=== PATIENT | male | born 1965 | race Caucasian/White ===

== ENCOUNTER 2017-01-31 23:33 | Inpatient (IN) ==
--- NOTE | 2017-02-01 01:24 | Emergency Department Note ---
Disposition Clinical Impression: Pleuritic chest pain, Elevated d-dimer Disposition: Admitted As Inpatient Condition: Good General Adult HPI - General Chief complaint: ED General Medical Stated complaint: pain under right arm pain is causing liss Time Seen by Provider: 02/01/17 01:03 Source: patient Limitations: no limitations - History of Present Illness Pain Scale: 10 - Related Data Allergies Allergy/AdvReac Type Severity Reaction Status Date / Time codeine Allergy Rash Verified 01/31/17 23:49 Past Medical History - Past Medical History Medical history: Reports: arthritis, diabetes, hypertension Psychiatric history: Reports: depression - Social History Smoking Status: Current every day smoker Smokeless Tobacco Status: No Alcohol use: Reports: none Drug use: Reports: none Physical Exam - General Limitations: no limitations General appearance: alert, in no apparent distress Course Vital Signs Temperature 98.1 F 01/31/17 23:49 Pulse Rate 73 01/31/17 23:49 Respiratory Rate 16 01/31/17 23:49 Blood Pressure 119/66 01/31/17 23:49 O2 Sat by Pulse Oximetry 95 01/31/17 23:49 Temperature 97.4 F L 02/01/17 05:33 Pulse Rate 69 02/01/17 05:33 Respiratory Rate 14 02/01/17 05:33 Blood Pressure 137/82 02/01/17 05:33 O2 Sat by Pulse Oximetry 94 02/01/17 05:33 Oxygen Delivery Oxygen Delivery Room Air Medical Decision Making - Lab Data Result diagrams: 02/01/17 02:13 02/01/17 02:13 Lab Results 02/01/17 02/01/17 02/01/17 Range/Units 02:13 02:13 02:13 WBC 11.2 H (4.3-11.1) K/mcL RBC 4.82 (4.19-5.50) M/mcL Hgb 14.6 (12.9-16.9) g/dL Hct 43.9 (37.5-50.1) % MCV 91.1 (83.0-100.0) fL MCH 30.3 (28.0-33.3) pg MCHC 33.3 (31.6-35.5) g/dL RDW 12.5 (11.5-14.5) % Plt Count 256 (140-400) K/mcL MPV 10.9 (9.4-12.4) fL Immature Gran % 0.4 (0-4) % Seg Neutrophils % 59.4 % Lymphocytes % 28.5 % Monocytes % 8.7 % Eosinophils % 2.5 % Basophils % 0.5 % Neutrophils # 6.7 (1.6-8.9) K/mcL Lymphocytes # 3.2 (0.6-4.6) K/mcL Monocytes # 1.0 (0.0-1.3) K/mcL Eosinophils # 0.3 (0.0-0.6) K/mcL Basophils # 0.1 (0.0-0.2) K/mcL Immature Plt Fraction 10.2 H (1.1-6.1) % PT (9.4-12.1) Seconds INR APTT (26.0-36.0) Seconds D-Dimer 1271 H (0-500) ng/mLFEU Sodium 131 L (136-145) mEq/L Potassium 4.2 (3.5-4.5) mEq/L Chloride 95 L (98-109) mEq/L Carbon Dioxide 25 (19-29) mEq/L BUN 30 H (8-26) mg/dL Creatinine 1.84 H (0.72-1.25) mg/dL Est GFR ( Amer) 47 L (> 60) Est GFR (Non-Af Amer) 39 L (> 60) BUN/Creatinine Ratio 16 (6-26) Glucose 371 H (70-99) mg/dL Calculated Osmolality 293 (280-300) Calcium 10.4 (8.6-10.8) mg/dL 02/01/17 Range/Units 02:13 WBC (4.3-11.1) K/mcL RBC (4.19-5.50) M/mcL Hgb (12.9-16.9) g/dL Hct (37.5-50.1) % MCV (83.0-100.0) fL MCH (28.0-33.3) pg MCHC (31.6-35.5) g/dL RDW (11.5-14.5) % Plt Count (140-400) K/mcL MPV (9.4-12.4) fL Immature Gran % (0-4) % Seg Neutrophils % % Lymphocytes % % Monocytes % % Eosinophils % % Basophils % % Neutrophils # (1.6-8.9) K/mcL Lymphocytes # (0.6-4.6) K/mcL Monocytes # (0.0-1.3) K/mcL Eosinophils # (0.0-0.6) K/mcL Basophils # (0.0-0.2) K/mcL Immature Plt Fraction (1.1-6.1) % PT 10.9 (9.4-12.1) Seconds INR 1.0 APTT 31.8 (26.0-36.0) Seconds D-Dimer (0-500) ng/mLFEU Sodium (136-145) mEq/L Potassium (3.5-4.5) mEq/L Chloride (98-109) mEq/L Carbon Dioxide (19-29) mEq/L BUN (8-26) mg/dL Creatinine (0.72-1.25) mg/dL Est GFR ( Amer) (> 60) Est GFR (Non-Af Amer) (> 60) BUN/Creatinine Ratio (6-26) Glucose (70-99) mg/dL Calculated Osmolality (280-300) Calcium (8.6-10.8) mg/dL Attestation Statement - Attestation Attestation: I examined this patient and my medical decision-making was reviewed with the SUMO WRESTLER/PA/Advanced Practice Nurse/Resident Physician. I agree with the documented findings, disposition and treatment plan as described except to the extent set forth below. Face to face time provided Patient complains of pain to his right axillary area. He appears in no acute distress on exam. EKG reviewed by me. Patient seen and evaluated in conjunction with the resident physician Dr. Jean Baptiste
--- NOTE | 2017-02-01 01:51 | Emergency Department Note ---
Disposition Clinical Impression: Pleuritic chest pain, Elevated d-dimer Disposition: Admitted As Inpatient Condition: Good Chest Pain HPI - General Chief Complaint: ED General Medical Stated Complaint: pain under right arm pain is causing liss Time Seen by Provider: 02/01/17 01:03 Source: patient Limitations: no limitations Vital Signs Reviewed: Yes Nursing Notes Reviewed: Yes - History of Present Illness HPI Narrative: 51-year-old male presents to the emergency department with a chief complaint of right-sided chest pain. He states it began tonight. He states it only hurts when he takes a deep breath in. When he takes a deep breath in he feels short of breath but not otherwise. Denies any history of DVT or PE. He takes no anticoagulants. He denies any substernal chest pressure, nausea, vomiting, diaphoresis. He states he feels completely fine while taking shallow breaths but only has pain when he takes a deep breath in on the right side. Denies any lower extremity swelling or calf pain. Denies any other complaints or concerns today Severity scale (1-10): 10 - Related Data Allergies Allergy/AdvReac Type Severity Reaction Status Date / Time codeine Allergy Rash Verified 01/31/17 23:49 All systems ED: reviewed and negative except as stated. Constitutional: Denies: fever Cardiovascular: Denies: dyspnea on exertion Respiratory: Denies: cough Gastrointestinal: Denies: abdominal pain, nausea, vomiting Musculoskeletal: Denies: back pain Neurological: Denies: weakness, numbness Chest Pain PMH - Past Medical History Medical history: Reports: arthritis, diabetes, hypertension Psychiatric history: Reports: depression - Social History Smoking Status: Current every day smoker Alcohol use: Reports: none Drug use: Reports: none Physical Exam General: Appears well, alert and oriented x 3 Cardiovascular: Regular rate and rhythm. S1, S2. No murmurs, rubs or gallops. Respiratory: Breath sounds clear bilaterally. No wheezing, rales or rhonchi. No resp distress Chest wall: No reproducible chest wall tenderness Abdomen: Soft, nontender. No guarding, rebound or rigidity. Eyes: Conjunctiva clear HENT: No oral mucosal lesions. Moist mucous membranes Musculoskeletal: There is no lower extremity swelling, asymmetry, edema, tenderness or any signs of DVT Skin: No lesions. No diaphoresis. Normal turgor. Normal color Psych: Appropriate - General Limitations: no limitations General appearance: alert, in no apparent distress Course Course Narrative: Presents to the emergency department with acute onset pleuritic chest pain on the right. No history of DVT or PE. Patient was low risk and a d-dimer was ordered which came back elevated at 1300. We cannot perform a CTA due to chronic renal insufficiency with a creatinine of 1.8. Patient will need a VQ scan. VQ scan was not available at this hour and patient will be started on a heparin drip and admitted the hospital to have this test performed. His vitals are stable. I discussed with the on-call hospitalist who accepts for admission. No further orders at this time EKG shows no acute changes. Patient states the pain is pleuritic in nature, not constant and is not associated with any other high-risk symptoms such as nausea, vomiting, diaphoresis or radiation. I do not suspect ACS. Vital Signs Temperature 98.1 F 01/31/17 23:49 Pulse Rate 73 01/31/17 23:49 Respiratory Rate 16 01/31/17 23:49 Blood Pressure 119/66 01/31/17 23:49 O2 Sat by Pulse Oximetry 95 01/31/17 23:49 Temperature 98.1 F 01/31/17 23:49 Pulse Rate 67 02/01/17 04:00 Respiratory Rate 20 02/01/17 04:00 Blood Pressure 121/75 02/01/17 04:00 O2 Sat by Pulse Oximetry 96 02/01/17 04:00 Oxygen Delivery Oxygen Delivery Room Air Chest Pain - Lab Data Result diagrams: 02/01/17 02:13 02/01/17 02:13 Lab Results 02/01/17 02/01/17 02/01/17 Range/Units 02:13 02:13 02:13 WBC 11.2 H (4.3-11.1) K/mcL RBC 4.82 (4.19-5.50) M/mcL Hgb 14.6 (12.9-16.9) g/dL Hct 43.9 (37.5-50.1) % MCV 91.1 (83.0-100.0) fL MCH 30.3 (28.0-33.3) pg MCHC 33.3 (31.6-35.5) g/dL RDW 12.5 (11.5-14.5) % Plt Count 256 (140-400) K/mcL MPV 10.9 (9.4-12.4) fL Immature Gran % 0.4 (0-4) % Seg Neutrophils % 59.4 % Lymphocytes % 28.5 % Monocytes % 8.7 % Eosinophils % 2.5 % Basophils % 0.5 % Neutrophils # 6.7 (1.6-8.9) K/mcL Lymphocytes # 3.2 (0.6-4.6) K/mcL Monocytes # 1.0 (0.0-1.3) K/mcL Eosinophils # 0.3 (0.0-0.6) K/mcL Basophils # 0.1 (0.0-0.2) K/mcL Immature Plt Fraction 10.2 H (1.1-6.1) % PT (9.4-12.1) Seconds INR APTT (26.0-36.0) Seconds D-Dimer 1271 H (0-500) ng/mLFEU Sodium 131 L (136-145) mEq/L Potassium 4.2 (3.5-4.5) mEq/L Chloride 95 L (98-109) mEq/L Carbon Dioxide 25 (19-29) mEq/L BUN 30 H (8-26) mg/dL Creatinine 1.84 H (0.72-1.25) mg/dL Est GFR ( Amer) 47 L (> 60) Est GFR (Non-Af Amer) 39 L (> 60) BUN/Creatinine Ratio 16 (6-26) Glucose 371 H (70-99) mg/dL Calculated Osmolality 293 (280-300) Calcium 10.4 (8.6-10.8) mg/dL 02/01/17 Range/Units 02:13 WBC (4.3-11.1) K/mcL RBC (4.19-5.50) M/mcL Hgb (12.9-16.9) g/dL Hct (37.5-50.1) % MCV (83.0-100.0) fL MCH (28.0-33.3) pg MCHC (31.6-35.5) g/dL RDW (11.5-14.5) % Plt Count (140-400) K/mcL MPV (9.4-12.4) fL Immature Gran % (0-4) % Seg Neutrophils % % Lymphocytes % % Monocytes % % Eosinophils % % Basophils % % Neutrophils # (1.6-8.9) K/mcL Lymphocytes # (0.6-4.6) K/mcL Monocytes # (0.0-1.3) K/mcL Eosinophils # (0.0-0.6) K/mcL Basophils # (0.0-0.2) K/mcL Immature Plt Fraction (1.1-6.1) % PT 10.9 (9.4-12.1) Seconds INR 1.0 APTT 31.8 (26.0-36.0) Seconds D-Dimer (0-500) ng/mLFEU Sodium (136-145) mEq/L Potassium (3.5-4.5) mEq/L Chloride (98-109) mEq/L Carbon Dioxide (19-29) mEq/L BUN (8-26) mg/dL Creatinine (0.72-1.25) mg/dL Est GFR ( Amer) (> 60) Est GFR (Non-Af Amer) (> 60) BUN/Creatinine Ratio (6-26) Glucose (70-99) mg/dL Calculated Osmolality (280-300) Calcium (8.6-10.8) mg/dL - Radiology Data EKG shows a sinus rhythm with a rate of 73 bpm. There is no significant ST changes. VA, QRS, QT interval within normal limits. Normal axis. Normal R wave progression
[2017-02-01 03:01] LABS: Calcium 10.4 mg/dL (8.6-10.8); Potassium 4.2 mEq/L (3.5-4.5)
[2017-02-01] MEDS ORDERED: *HR* Heparin 5,000 UNIT/ML VIAL IVP ONE (03:22)
[2017-02-01] MEDS ORDERED: *HR* Heparin 5,000 UNIT/ML VIAL IVP PRN ×2 (03:22)
[2017-02-01] MEDS ORDERED: *HR* HYDROcodone/Acet 10/325 mg TABLET PO ONE (03:36)
[2017-02-01 04:10] LABS: Basophils # 0.1 K/mcL (0.0-0.2); Basophils % 0.5 %; Eosinophils # 0.3 K/mcL (0.0-0.6); Eosinophils % 2.5 %; Hematocrit 43.9 % (37.5-50.1); Hemoglobin 14.6 g/dL (12.9-16.9); Immature Granulocytes % 0.4 % (0-4); Immature Platelets 10.2 % (1.1-6.1); Lymphocytes # 3.2 K/mcL (0.6-4.6); Lymphocytes % 28.5 %; Mean Corpuscular HGB Conc 33.3 g/dL (31.6-35.5); Mean Corpuscular Hemoglobin 30.3 pg (28.0-33.3); Mean Corpuscular Volume 91.1 fL (83.0-100.0); Mean Platelet Volume 10.9 fL (9.4-12.4); Monocytes % 8.7 %; Neutrophils # 6.7 K/mcL (1.6-8.9); Platelet Count 256 K/mcL (140-400); Red Blood Count 4.82 M/mcL (4.19-5.50); Red Cell Distribution Width 12.5 % (11.5-14.5); Segmented Neutrophils % 59.4 %
[2017-02-01 04:18] LABS: Prothrombin Time 10.9 Seconds (9.4-12.1)
[2017-02-01 04:21] LABS: Activated Partial Thrombo Time 31.8 Seconds (26.0-36.0)
[2017-02-01] MEDS: Heparin 25,000 UNIT/500 ML D5W 25,000 UNIT/500 ML MLS IVC SCH (04:56)
[2017-02-01] MEDS ORDERED: Naloxone 0.4 MG/ML INJ IVP PRN (06:13)
--- NOTE | 2017-02-01 06:16 | Internal Med History&Physical ---
Date of Encounter: 02/01/17 Time of Encounter: 06:16 Assessment and Plan (1) Pleuritic chest pain Current visit: Yes Status: Acute Need to exclude VTE / PE. Analgesia. VQ scan to exclude PE. Pt is emperically started on heparin infusion. (2) Elevated d-dimer Current visit: Yes Status: Acute Need to exclude VTE / PE. Analgesia. VQ scan to exclude PE. Pt is emperically started on heparin infusion. If the PE is negative, need w/u to establish cause of elevated D-dimers. (3) Diabetes mellitus Current visit: Yes Status: Chronic continue home dose of insulin and add sliding scale insulin. Qualifiers: Diabetes mellitus type: type 2 Diabetes mellitus complication status: with unspecified complications Diabetes mellitus shelter insulin use: without shelter use Qualified Code(s): E11.8 - Type 2 diabetes mellitus with unspecified complications (4) HTN (hypertension) Current visit: Yes Status: Chronic Continue home medications Qualifiers: Hypertension type: essential hypertension Qualified Code(s): I10 - Essential (primary) hypertension (5) Nicotine dependence Current visit: Yes Status: Chronic Pt declines nicotine patches Qualifiers: Nicotine product type: cigarettes Substance use status: unspecified nicotine-induced disorder Qualified Code(s): F17.219 - Nicotine dependence, cigarettes, with unspecified nicotine-induced disorders Internal Medicine - H&P: HPI Chief complaint: Right sided pleuritic chest pain Admitted From: Emergency Dept Plans for Post Hospital Care: Home History of present illness: Mr. Macias is a 51 year old male With history of diabetes mellitus, hypertension, CKD stage 3 and PVD. Presents to the emergency department with history of sharp, severe, 10/10 right-sided lower chest pain associated with deep breath. Hence he is taking shallow breaths. He denies cough, hemoptysis, fever, chills, nausea, vomiting, abdominal pain, dysuria, hematuria, bowel problems. He was evaluated in the emergency department and his d-dimer was elevated at 1271. In view of his CKD stage 3, CTA chest could not be done and VQ scan is requested and yet to be done. He is started on heparin infusion in the ER and admitted to the hospitalist service for further w/u and management. He denies recent air travel, long car travel, recent hospitalization, surgical procedures, immobility, personal / family h/o VTE. Past Med Surg Social Fam HX - Past Medical History Medical history: arthritis, diabetes, hypertension Psychiatric history: depression - Social History Smoking Status: Current every day smoker Smokeless Tobacco Status: No Alcohol use: none Drug use: none - Additional Family History Additional family history: His mother had diabetes Internal Medicine - H&P: Meds Allergies codeine Allergy (Verified 01/31/17 23:49) Rash All Systems PM: A 10-system review of systems was performed and is negative for pertinent findings except as documented above in the HPI. - Constitutional Vitals: Temp Pulse Resp BP Pulse Ox 97.4 F L 69 14 137/82 94 02/01/17 05:33 02/01/17 05:33 02/01/17 05:33 02/01/17 05:33 02/01/17 05:33 Exam: General: Not in acute distress at the time of my evaluation HEENT: Oral mucosa is moist. No conjunctival palor or scleral icterus Neck: No obvious neck swellings Lungs: Clear to auscultation Cardiac: Regular rate and rhythm. No significant murmurs Abdomen: Soft, non tender. Bowel sounds present Genitourinary: No padilla catheter Neurological: Alert and oriented. No gross localizing deficits Psych: Not aggressive or agitated Extremities: no significant leg edema / calf tenderness Skin: No generalized rash Internal Med - H&P Results - Labs CBC & Chem 7: 02/01/17 02:13 02/01/17 02:13 - EKG Data -: EKG Interpreted by Myself EKG shows normal: sinus rhythm Rate: normal - Impressions ITS Impressions Chest X-Ray 02/01/17 01:46 IMPRESSION: 1. No acute cardiopulmonary disease. D/ / Talib Vergara MD / Talib Vergara MD Interpreting Provider: Talib Vergara MD
[2017-02-01] MEDS ORDERED: Dextrose Gel 15 GM PO PRN ×2 (06:20)
[2017-02-01] MEDS ORDERED: D5% in Water 1,000 ML IVC PRN (06:20)
[2017-02-01] MEDS ORDERED: *HR* Dextrose 50 % in Water (Syg) 50 ML SYRINGE IVP PRN (06:20)
[2017-02-01] MEDS: Insulin LISPRO 300 UNITS/3 ML VIAL SQ SCH ×4 (07:50→20:44)
[2017-02-01] MEDS ORDERED: Oxymetazoline Nasal SPRAY BOTTLE NS PRN (10:50)
[2017-02-01] MEDS: Acetaminophen 325 MG TABLET PO PRN ×2 (11:39→20:50)
[2017-02-01 12:34] LABS: Activated Partial Thrombo Time 110.3 Seconds (26.0-36.0)
[2017-02-01 12:36] LABS: Heparin anti-factor XA UFH 0.73 IU/mL (0.30-0.70)
[2017-02-01 12:53] LABS: INR 1.1; Prothrombin Time 11.7 Seconds (9.4-12.1)
--- NOTE | 2017-02-01 15:26 | Internal Med Progress Note ---
Date of Encounter: 02/01/17 Time of Encounter: 09:35 - Assessment and plan (1) Pulmonary embolism Current Visit: Yes Status: Acute Assessment and plan: Patient reports history of right mid axillary rib pain onset 9 PM last night. He says that sharp and intermittent and only with deep inspiration. He does report sometimes having minimal pain with movement and specifies with yawning. I did move his arm and palpate the area where he was having pain. There is no bruising, petechiae,. It is not tender to palpation. He is unable to take deep breaths due to pain. Breaths are shallow, and with poor inspiratory effort lungs are clear posteriorly. Patient is not requiring supplemental oxygen at this time. Due to renal function, patient was unable to have a CT scan. He did have a VQ scan this morning and the findings were high probability for acute PE. Radiology did call me. He was started on a heparin drip by event av operator admitting physician. We will continue the heparin drip. PT, APTT, INR all elevated. Will continue to monitor labs per protocol. Patient appears to be resting comfortably and has tolerated Tylenol for pain. I have seen him 2-3 other times since initial assessment he has not requested additional pain medication. Bilateral lower extremity venous Dopplers ordered and pending Continuous pulse ox Oxygen when necessary to maintain sats greater than 92% Continuous telemetry [facility]. Qualifiers: Pulmonary embolism type: other Chronicity: acute Acute cor pulmonale presence: without acute cor pulmonale Qualified Code(s): I26.99 - Other pulmonary embolism without acute cor pulmonale (2) Elevated d-dimer Current Visit: Yes Status: Acute Assessment and plan: Plan as above. (3) Diabetes mellitus Current Visit: Yes Status: Chronic Assessment and plan: A1c is 12.7. We will consult informatics educator. Sliding scale insulin Accu-Cheks before meals at bedtime Diabetic diet Qualifiers: Diabetes mellitus type: type 2 Diabetes mellitus complication status: with unspecified complications Diabetes mellitus senior care insulin use: without termite technician use Qualified Code(s): E11.8 - Type 2 diabetes mellitus with unspecified complications (4) HTN (hypertension) Current Visit: Yes Status: Chronic Assessment and plan: Chronic. Continue home medications. Qualifiers: Hypertension type: essential hypertension Qualified Code(s): I10 - Essential (primary) hypertension (5) Nicotine dependence Current Visit: Yes Status: Chronic Assessment and plan: Discussed smoking cessation. LPt states that nothing works and that he is not interested in education or materials at this time. Qualifiers: Nicotine product type: cigarettes Substance use status: unspecified nicotine-induced disorder Qualified Code(s): F17.219 - Nicotine dependence, cigarettes, with unspecified nicotine-induced disorders - Time Spent With Patient less than 15 minutes - Subjective Interval history: Patient was seen and assessed this morning at 9:35 AM. Is alert and oriented and interactive. He does not appear to be any distress, there is no conversational dyspnea. He speaks easily in full sentences. He reports right mid axillary rib pain, onset 2100 last p.m. He describes it as sharp and happens with deep inspiration. He also reports sometimes it happens with movement and/or yawning, however when he is up walking around or moving his arms , there is no increase in pain. It is not tender to palpation is not tender to arm extension, there is no obvious deformity or bruising. He is not requiring any supplemental oxygen nor does he wear oxygen at home. He rates the pain a constant 8 out of 10 and says that it becomes a 10 out of 10 with inspiration. He denies any recent change in his routine. Did discuss smoking cessation with him. He states "nothing works". He says he smokes one half pack per day. He says that he does not need any help. And he denies a new cough. - Constitutional Vitals: Temp Pulse Resp BP Pulse Ox 98.0 F 71 16 139/79 93 02/01/17 11:26 02/01/17 11:26 02/01/17 11:26 02/01/17 11:26 02/01/17 11:26 General appearance: Present: A&O X 3, pleasant, no acute distress, answers questions appropriately - Head Head exam: Present: normal inspection - Eye Eye exam: Present: normal appearance, conjuntiva pink - ENT ENT exam: Present: mucous membranes moist, normal exam - Neck Neck exam general surgery: Absent: lymphadenopathy, tenderness - Respiratory Respiratory exam: Present: decreased breath sounds. Absent: chest wall tenderness, rales, respiratory distress, rhonchi, stridor, wheezes, tachypnea - Cardiovascular Cardiovascular exam: Present: RRR, +S1, +S2. Absent: diastolic murmur, systolic murmur - GI/Abdominal GI/Abdominal exam: Present: normal bowel sounds, soft. Absent: distended, hepatomegaly, tenderness - Extremities Exam Extremities exam: Present: full ROM, normal inspection, warm, radial pulses palpable and symetrical. Absent: pedal edema, tenderness - Neurological Exam Neurological exam: Present: alert, oriented X3, no focal deficits, strengths equal and symetr throughout Internal Medicine: Result - Labs CBC & Chem 7: 02/01/17 02:13 02/01/17 02:13 Labs: Cardiac Enzymes 02/01/17 Range/Units 08:08 Troponin I 0.00 (0-0.03) ng/mL - ABG Interpretation ABG results: PT/INR, D-dimer PT 11.7 Seconds (9.4-12.1) 02/01/17 11:34 D-Dimer 1271 ng/mLFEU (0-500) H 02/01/17 02:13 Consult Discharge Plan - Plan Referrals: Verenice Castillo SALVAGE MECHANIC [Primary Care Provider] - 02/11/17 3:00 pm
--- NOTE | 2017-02-01 17:32 | Electrocardiograph Report ---
[place] [id number] Test Date: 2017-01-31 Pat Name: Wyatt Macias Department: 103 Room: 3B Gender: M Blueprinting Machine Operator: KEISHA : 1965 Requested By: Joe Edouard Order Number: [id number] Reading MD: Mindy Ramsey Measurements Intervals [place] Rate: 73 P: 42 FL: 179 QRS: 31 QRSD: 97 T: 52 QT: 361 QTc: 386 Interpretive Statements SINUS RHYTHM ST ELEVATION, PROBABLY EARLY REPOLARIZATION Electronically Signed On 02-01-2017 17:31:15 EDT by Mindy Ramsey
[2017-02-01 19:33] LABS: Prothrombin Time 10.9 Seconds (9.4-12.1)
[2017-02-01 19:45] LABS: Activated Partial Thrombo Time 47.2 Seconds (26.0-36.0)
[2017-02-01] MEDS ORDERED: INSULIN DETEMIR 55 UNIT SQ SCH (21:30)
[2017-02-01] MEDS: *HR* OxyCODONE/APAP 7.5/325 TABLET PO PRN (22:13)
[2017-02-01] MEDS: Insulin DETEMIR 100 UNIT/ML X5UNITS SQ SCH (22:13)
[2017-02-01] MEDS: Melatonin 3 MG TABLET PO SCH (22:13)
[2017-02-01] MEDS: Mirtazapine 15 MG TABLET PO SCH (22:13)
[2017-02-02 03:40] LABS: Basophils # 0.1 K/mcL (0.0-0.2); Eosinophils # 0.3 K/mcL (0.0-0.6); Eosinophils % 3.7 %; Hematocrit 40.6 % (37.5-50.1); Immature Granulocytes % 0.2 % (0-4); Lymphocytes # 3.9 K/mcL (0.6-4.6); Lymphocytes % 48.2 %; Mean Corpuscular HGB Conc 34.5 g/dL (31.6-35.5); Mean Corpuscular Hemoglobin 31.5 pg (28.0-33.3); Mean Corpuscular Volume 91.2 fL (83.0-100.0); Monocytes # 0.8 K/mcL (0.0-1.3); Monocytes % 9.2 %; Neutrophils # 3.1 K/mcL (1.6-8.9); Platelet Count 223 K/mcL (140-400); Red Blood Count 4.45 M/mcL (4.19-5.50); Red Cell Distribution Width 12.4 % (11.5-14.5); Segmented Neutrophils % 37.7 %
[2017-02-02 03:53] LABS: Calcium 10.5 mg/dL (8.6-10.8); Potassium 4.2 mEq/L (3.5-4.5)
[2017-02-02] MEDS: Heparin 25,000 UNIT/500 ML D5W 25,000 UNIT/500 ML MLS IVC SCH ×2 (04:03→23:50)
[2017-02-02] MEDS: *HR* OxyCODONE/APAP 7.5/325 TABLET PO PRN ×3 (07:58→22:10)
[2017-02-02] MEDS: Insulin LISPRO 300 UNITS/3 ML VIAL SQ SCH ×4 (07:59→22:04)
[2017-02-02] MEDS: 0.9 % Sodium Chloride 1,000 ML IVC SCH (10:37)
--- NOTE | 2017-02-02 14:05 | Venous Imaging Report ---
LE Venous Duplex Patient Name:Wyatt Macias Order Number:[id number] Procedure Date:02/01/2017 Date:1965Age:51 yrs Gender:Male Location:[facility] Room #: 3B33 Shipping Manager:Yvette Hector Referring MD:Margaret Burch TOY DESIGNER bottom stop attacher:Verenice Castillo, TOY DESIGNER Reading MD:Jacky Souza MD Primary Indications:High probability PE on VQ scan Secondary Indications: Impressions: Bilateral lower extremity: normal superficial and deep exam. Findings Prior Study: No prior study available for comparison. Lower Extremity Venous Duplex Side Vein Compress Spontaneous Flow Augment Diameter (cm) Depth (cm) Right Distal Iliac Normal Yes Phasic Yes Right Common Femoral Normal Yes Phasic Yes Right Superficial Femoral Normal Yes Phasic Yes Right Popliteal Normal Yes Phasic Yes Right Posterior Tibial Normal Yes Phasic Yes Right Peroneal Normal Yes Phasic Yes Right Saphenofemoral Junction Normal Yes Phasic Yes Right Great Saphenous Normal Yes Phasic Yes Right Lesser Saphenous Normal Yes Phasic Yes Left Distal Iliac Normal Yes Phasic Yes Left Common Femoral Normal Yes Phasic Yes Left Superficial Femoral Normal Yes Phasic Yes Left Popliteal Normal Yes Phasic Yes Left Posterior Tibial Normal Yes Phasic Yes Left Peroneal Normal Yes Phasic Yes Left Saphenofemoral [place]unction Normal Yes Phasic Yes Left Great Saphenous Normal Yes Phasic Yes Left Lesser Saphenous Normal Yes Phasic Yes Updated by Jacky Souza MD on 02/02/2017 1:59:01 PM electronically signed on 02/02/2017 1:59:28 PM with status of Final
--- NOTE | 2017-02-02 19:16 | Internal Med Progress Note ---
Date of Encounter: 02/02/17 Time of Encounter: 19:13 - Assessment and plan (1) Pulmonary embolism Current Visit: Yes Status: Acute Assessment and plan: Patient reports history of right mid axillary rib pain onset 9 PM last night. He says that sharp and intermittent and only with deep inspiration. He does report sometimes having minimal pain with movement and specifies with yawning. I did move his arm and palpate the area where he was having pain. There is no bruising, petechiae,. It is not tender to palpation. He is unable to take deep breaths due to pain. Breaths are shallow, and with poor inspiratory effort lungs are clear posteriorly. Patient is not requiring supplemental oxygen at this time. Due to renal function, patient was unable to have a CT scan. He did have a VQ scan this morning and the findings were high probability for acute PE. Radiology did call me. He was started on a heparin drip by heading maker admitting physician. We will continue the heparin drip. PT, APTT, INR all elevated. Will continue to monitor labs per protocol. Patient appears to be resting comfortably and has tolerated Tylenol for pain. I have seen him 2-3 other times since initial assessment he has not requested additional pain medication. Bilateral lower extremity venous Dopplers ordered and pending Continuous pulse ox Oxygen when necessary to maintain sats greater than 92% Continuous telemetry [facility]. 02/02/2017 PE diagnosed with V/Q scan will get troponin, ECHO and Cont IV fluids will get Oncology tomorrow spoke with Dr Dean ( patient claims that he was seen by Dr Dean in the past) no active vascular intervention at this time. out patient follow up Qualifiers: Pulmonary embolism type: other Chronicity: acute Acute cor pulmonale presence: without acute cor pulmonale Qualified Code(s): I26.99 - Other pulmonary embolism without acute cor pulmonale (2) Elevated d-dimer Current Visit: Yes Status: Acute Assessment and plan: Plan as above. (3) Diabetes mellitus Current Visit: Yes Status: Chronic Assessment and plan: A1c is 12.7. 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 Sliding scale insulin Accu-Cheks before meals at bedtime Diabetic diet Qualifiers: Diabetes mellitus type: type 2 Diabetes mellitus complication status: with unspecified complications Diabetes mellitus skilled nursing insulin use: without skilled nursing use Qualified Code(s): E11.8 - Type 2 diabetes mellitus with unspecified complications (4) HTN (hypertension) Current Visit: Yes Status: Chronic Assessment and plan: Chronic. Continue home medications. Qualifiers: Hypertension type: essential hypertension Qualified Code(s): I10 - Essential (primary) hypertension (5) Nicotine dependence Current Visit: Yes Status: Chronic Assessment and plan: Discussed smoking cessation. LPt states that nothing works and that he is not interested in education or materials at this time. Qualifiers: Nicotine product type: cigarettes Substance use status: unspecified nicotine-induced disorder Qualified Code(s): F17.219 - Nicotine dependence, cigarettes, with unspecified nicotine-induced disorders - Subjective Interval history: seen and examined. has occasional SOB - Constitutional Vitals: Temp Pulse Resp BP Pulse Ox 97.6 F 76 18 137/72 97 02/02/17 15:18 02/02/17 15:18 02/02/17 15:18 02/02/17 15:18 02/02/17 15:18 General appearance: Present: A&O X 3, pleasant, no acute distress, answers questions appropriately - Head Head exam: Present: atraumatic, normocephalic - Eye Eye exam: Present: PERRL, conjuntiva pink, sclera anicteric Pupils: Present: PERRL - Neck Neck exam general surgery: Present: supple, trachea midline. Absent: lymphadenopathy - Respiratory Respiratory exam: Present: CTAB. Absent: accessory muscle use, rales, rhonchi, wheezes - Cardiovascular Cardiovascular exam: Present: RRR, +S1, +S2. Absent: diastolic murmur, gallop, rubs, systolic murmur - GI/Abdominal GI/Abdominal exam: Present: normal bowel sounds, soft, no peritoneal signs. Absent: distended, tenderness - Extremities Exam Extremities exam: Present: warm, radial pulses palpable and symetrical. Absent : calf tenderness, cyanotic, pedal edema - Neurological Exam Neurological exam: Present: CN II-XII intact, oriented X3, no focal deficits. Absent: pronater drift, facial droop, speech deficit - Skin Skin exam: Present: dry, intact Internal Medicine: Result - Labs CBC & Chem 7: 02/02/17 03:24 02/02/17 03:24 Labs: Short CBC 02/02/17 Range/Units 03:24 WBC 8.1 (4.3-11.1) K/mcL Hgb 14.0 (12.9-16.9) g/dL Hct 40.6 (37.5-50.1) % Plt Count 223 (140-400) K/mcL Neutrophils # 3.1 (1.6-8.9) K/mcL BMP 02/02/17 03:24 Sodium 133 L Potassium 4.2 Chloride 97 L Carbon Dioxide 25 BUN 28 H Creatinine 1.53 H Glucose 242 H Calcium 10.5 Cardiac Enzymes 02/02/17 02/02/17 Range/Units 08:56 14:06 Troponin I 0.00 0.00 (0-0.03) ng/mL - ABG Interpretation ABG results: PT/INR, D-dimer PT 10.9 Seconds (9.4-12.1) 02/01/17 19:14 D-Dimer 1271 ng/mLFEU (0-500) H 02/01/17 02:13 Consult Discharge Plan - Plan Referrals: Verenice Castillo METAL BURNISHER [Primary Care Provider] - 02/11/17 3:00 pm
[2017-02-02] MEDS: Melatonin 3 MG TABLET PO SCH (22:04)
[2017-02-02] MEDS: Mirtazapine 15 MG TABLET PO SCH (22:04)
[2017-02-02] MEDS: Insulin DETEMIR 100 UNIT/ML X5UNITS SQ SCH (22:04)
[2017-02-03] MEDS: 0.9 % Sodium Chloride 1,000 ML IVC SCH (00:23)
--- NOTE | 2017-02-03 07:35 | ECHO - Doppler Report ---
Echocardiogram Name: Wyatt Macias Date of Study: 02/02/2017 Date: 1965 Ht: 72.0 in Medical Record#: [id number] Age: 51 Wt: 220.0 lb Gender: Male BSA: 2.22 Order #: [id number] Location: [facility] Room #: [id number] Reading Physician: Gui Cates MD, [facility] Animal Care Taker: [place] [facility] Ordering Physician: Lauri Chamberlain MD Primary Physician: Verenice Castillo CNP Indications: Chest pain Impressions: Normal LV systolic function, LVEF 60%. Normal left ventricular diastolic function. Normal right ventricular size and function. No significant valvular dysfunction. No evidence of pulmonary hypertension. Left Ventricular Wall Motion: Rest Echo Findings All wall segments showed normal motion. Findings: Study Quality * Suboptimal echo windows. ECG Findings * Normal sinus rhythm. Left Ventricle * Normal LV systolic function, LVEF 60%. * Normal LV chamber size and wall thickness. * Normal left ventricular diastolic function. Right Ventricle * Normal right ventricular size and function. Left Atrium * Normal left atrial size. Right Atrium * Normal right atrial size. Aorta * Normally sized aortic root. Pericardium * There is a trivial pericardial effusion present. IVC * The IVC is not well evaluated. Aortic Valve * Trileaflet aortic valve. Moderate thickening/calcification of the non-coronary cusp. * No aortic stenosis. * No aortic regurgitation. Mitral Valve * Mildly thickened/calcified mitral valve leaflets. * No mitral stenosis. * No mitral regurgitation. Tricuspid Valve * Tricuspid valve not well visualized. * No tricuspid stenosis. * Trace tricuspid regurgitation. * No evidence of pulmonary hypertension. Pulmonic Valve * Pulmonic valve not well visualized. * No pulmonic stenosis. * No pulmonic regurgitation. History Hypertension Diabetes Hypercholesteremia History of Smoking Years 45 Packs 0.5 Family History of CAD Measurements: BP: 137/ 72 2D Normal Values RVIDd: 3.15 cm IVSd: 1.05 cm 0.6 - 1.0 cm LVIDd: 4.21 cm 3.7 - 5.6 cm LVPWd: .94 cm 0.6 - 1.1 cm LVIDs: 2.80 cm 1.5 - 3.6 cm AO: 2.70 cm < 4.0 cm %FS: 33.50 cm >25 % LA volume: 43 Mitral Valve Peak E:.55 m/sec Peak A:.62 m/sec E/A Ratio:0.9 Peak E' Lat Pranav:13.9 cm/s Peak E' Med Pranav:9.7 cm/s E/E' Lat Ratio:4 E/E' Med Ratio:5.7 Tricuspid Valve TV Regurg Peak Grad: 14.00mmHg TV Regurg Peak Pranav: 1.86m/sec Updated by Gui Cates MD, [facility] on 02/03/2017 7:31:11 AM electronically signed on 02/03/2017 7:31:34 AM with status of Final [employer] Jones: 1=Normal, 2=Hypokinesis, 3=Akinesis, 4=Dyskinesis, 5=Aneurysmal, 6=Hyperkinetic, X=Not Visualized (Blank)=Missing
[2017-02-03] MEDS: *HR* OxyCODONE/APAP 7.5/325 TABLET PO PRN (07:57)
[2017-02-03] MEDS: Insulin LISPRO 300 UNITS/3 ML VIAL SQ SCH ×2 (07:57→12:05)
--- NOTE | 2017-02-03 08:01 | Oncology Inp Consult Note ---
<Juan Prakash - Last Filed: 02/03/17 13:17> Date of Encounter: 02/03/17 Time of Encounter: 08:01 Assessment and Plan (1) Pulmonary embolism Status: Acute Assessment and plan: Patient has no history of DVT/PE, no family history of blood clots/cancers, from his history this pulmonary embolism episode could be unprovoked, patient was started on heparin IV drip, patient requested that he would like to try newer oral anticoagulation medication therefore upon discharge patient will be switched from heparin drip to Xarelto, hand written prescription was given to the patient. Patient will follow up with hematology/oncology office as outpatient for further testing and recommendation for duration of his anticoagulation therapy. Qualifiers: Pulmonary embolism type: other Chronicity: acute Acute cor pulmonale presence: without acute cor pulmonale Qualified Code(s): I26.99 - Other pulmonary embolism without acute cor pulmonale - Data of Consult Patient: new to practice Consult date: 02/03/17 Requesting Physician: Padmini Lopez Primary Care Provider: Verenice Castillo CNP - Consult Narrative Reason for consult: Pulmonary embolism History of present illness: Mr. Macias is a 51 year old male with a history of diabetes type 2, hypertension, chronic kidney disease stage III and peripheral vascular disease who presented to ER with chief complaint of severe sharp right-sided chest pain which started a few days ago before he came to the hospital. In the ER he was found to have elevated d-dimer of more than 1200 and due to the chronic kidney disease stage III, VQ scan was obtained and it showed high probability for pulmonary embolism therefore patient was admitted to the hospital for the same reason. Patient was started on IV heparin drip, patient has no history of prior DVT/PE, patient denies recent surgeries, long distance driving, flight, immobility, and no personal/family history of cancer. No hypercoagulable disease from his family. Hematology/oncology was consulted for further recommendation. Past Med Surg Social Fam HX - Past Medical History Medical history: arthritis, diabetes, hypertension Psychiatric history: depression - Social History Smoking Status: Current every day smoker Smokeless Tobacco Status: No Alcohol use: none Drug use: none Medications and Allergies Acetaminophen [Tylenol] 1,000 mg PO Q6HR PRN 02/01/17 [History] Atenolol [Tenormin] 100 mg PO DAILY 02/01/17 [History] Cetirizine HCl [All Day Allergy] 10 mg PO DAILY 02/01/17 [History] Fenofibrate Nanocrystallized [Tricor] 145 mg PO DAILY 02/01/17 [History] Fluorouracil [Tolak] 1 appl TP BID PRN 02/01/17 [History] Glimepiride [Amaryl] 2 mg PO DAILY 02/01/17 [History] Insulin DETEMIR [Levemir Flextouch] 55 unit SQ HS 02/01/17 [History] Lisinopril/Hydrochlorothiazide [Zestoretic 20-12.5 mg Tablet] 1 tab PO BID 02/01 [History] Melatonin 5 mg PO HS 02/01/17 [History] Methylphenidate HCl [Ritalin] 30 mg PO DAILY 02/01/17 [History] Mirtazapine [Remeron] 30 mg PO HS 02/01/17 [History] Omeprazole [PriLOSEC] 20 mg PO BID 02/01/17 [History] Oxycodone HCl/Acetaminophen [Percocet 7.5-325 mg Tablet] 1 tab PO TID PRN [History] Oxymetazoline [Afrin] 1 spray NS Q12HR 02/01/17 [History] Paroxetine HCl [Paxil] 40 mg PO DAILY 02/01/17 [History] Pentoxifylline 400 mg PO TID 02/01/17 [History] Rosuvastatin [Crestor] 40 mg PO HS 02/01/17 [History] Tizanidine HCl 8 mg PO HS 02/01/17 [History] Allergies codeine Allergy (Verified 01/31/17 23:49) Rash Review of systems: Initially patient presented with right-sided chest pain and mild shortness of breath. Patient denies headache, fever, chill, weight loss, productive cough, nausea/vomiting, abdominal pain, diarrhea or dysuria. Oncology - Exam - Constitutional Vitals: Temp Pulse Resp BP Pulse Ox 97.6 F 71 16 120/72 97 02/03/17 07:23 02/03/17 07:23 02/03/17 07:23 02/03/17 07:23 02/03/17 07:23 General appearance: average body habitus, cooperative, no acute distress - Head Head exam: Present: atraumatic, normal inspection, normocephalic - Eye Eye exam: Present: EOMI, PERRL Pupils: Present: PERRL - ENT ENT exam: Present: mucous membranes dry, normal external ear exam - Neck Neck exam: Present: normal inspection. Absent: tenderness - Respiratory Respiratory exam: Present: CTAB. Absent: rales, respiratory distress, rhonchi, wheezes - Cardiovascular Cardiovascular exam: Present: RRR, +S1, +S2. Absent: clicks, diastolic murmur, rubs, systolic murmur - GI/Abdominal GI/Abdominal exam: Present: normal bowel sounds, soft. Absent: distended, firm , guarding, rebound, rigid, tenderness - Extremities Exam Extremities exam: Present: normal inspection. Absent: calf tenderness, tenderness - Neurological Exam Neurological exam: Present: alert, CN II-XII intact, oriented X3, no focal deficits. Absent: altered Consult Discharge Plan - Plan Instructions: Rivaroxaban (By mouth) Referrals: Domenic Buckley MD [Partnered Physician] - Verenice Castillo CNP [Primary Care Provider] - 02/11/17 3:00 pm <Domenic Buckley - Last Filed: 02/03/17 17:44> Date of Encounter: 02/03/17 - Data of Consult Requesting Physician: Padmini Lopez Primary Care Provider: Verenice Castillo CNP - Consult Narrative History of present illness: Mr. Macias is a 51 year old male with history of chronic kidney disease, came in with right-sided chest pain, unprovoked pulmonary embolism, on anticoagulation planned longer-term Xarelto treatment. He denies any history of gross GI bleeding his colonoscopy was more than 10 years ago plan to repeat colonoscopy. 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 We will obtain hypercoagulable workup as an outpatient, patient is for possible discharge today. Echocardiogram findings reviewed. Plan/follow up care d/w pt in detail I have seen and examined patient myself, reviewed history physical exam findings as outlined above, discussed and agree with assessment and plan findings per Dr Juan Prakash's dictation. Oncology - Exam - Constitutional Vitals: Temp Pulse Resp BP Pulse Ox 97.9 F 84 17 124/73 96 02/03/17 15:27 02/03/17 15:27 02/03/17 15:27 02/03/17 15:27 02/03/17 15:27
--- NOTE | 2017-02-03 09:37 | Discharge Summary ---
Date of Encounter: 02/07/17 Time of Encounter: 09:33 - Discharge Diagnosis (1) Pulmonary embolism Priority: Primary Status: Acute Qualifiers: Pulmonary embolism type: other Chronicity: acute Acute cor pulmonale presence: without acute cor pulmonale Qualified Code(s): I26.99 - Other pulmonary embolism without acute cor pulmonale (2) Elevated d-dimer Priority: Primary Status: Acute (3) Diabetes mellitus Priority: Secondary Status: Chronic Qualifiers: Diabetes mellitus type: type 2 Diabetes mellitus complication status: with unspecified complications Diabetes mellitus termite control servicer insulin use: without alf use Qualified Code(s): E11.8 - Type 2 diabetes mellitus with unspecified complications (4) HTN (hypertension) Priority: Secondary Status: Chronic Qualifiers: Hypertension type: essential hypertension Qualified Code(s): I10 - Essential (primary) hypertension (5) Nicotine dependence Priority: Secondary Status: Chronic Qualifiers: Nicotine product type: cigarettes Substance use status: unspecified nicotine-induced disorder Qualified Code(s): F17.219 - Nicotine dependence, cigarettes, with unspecified nicotine-induced disorders - Discharge Medications Home Medications: Acetaminophen [Tylenol] 1,000 mg PO Q6HR PRN 02/01/17 [History] Atenolol [Tenormin] 100 mg PO DAILY 02/01/17 [History] Cetirizine HCl [All Day Allergy] 10 mg PO DAILY 02/01/17 [History] Fenofibrate Nanocrystallized [Tricor] 145 mg PO DAILY 02/01/17 [History] Fluorouracil [Tolak] 1 appl TP BID PRN 02/01/17 [History] Glimepiride [Amaryl] 2 mg PO DAILY 02/01/17 [History] Insulin DETEMIR [Levemir Flextouch] 55 unit SQ HS 02/01/17 [History] Lisinopril/Hydrochlorothiazide [Zestoretic 20-12.5 mg Tablet] 1 tab PO BID 02/01 [History] Melatonin 5 mg PO HS 02/01/17 [History] Methylphenidate HCl [Ritalin] 30 mg PO DAILY 02/01/17 [History] Mirtazapine [Remeron] 30 mg PO HS 02/01/17 [History] Omeprazole [PriLOSEC] 20 mg PO BID 02/01/17 [History] Oxycodone HCl/Acetaminophen [Percocet 7.5-325 mg Tablet] 1 tab PO TID PRN [History] Oxymetazoline [Afrin] 1 spray NS Q12HR 02/01/17 [History] Paroxetine HCl [Paxil] 40 mg PO DAILY 02/01/17 [History] Pentoxifylline 400 mg PO TID 02/01/17 [History] Rosuvastatin [Crestor] 40 mg PO HS 02/01/17 [History] Tizanidine HCl 8 mg PO HS 02/01/17 [History] Allergies/Adverse Reactions: Allergies codeine Allergy (Verified 01/31/17 23:49) Rash Date of admission: 02/02/17 21:02 Primary care physician: Verenice Castillo CNP Consults: 02/03/17 09:28 Consult to Oncology Hematology [CONS] Routine Consulting Provider: Domenic Buckley Reason for Consult: PE management for Anticoagulation. Call Completed: Yes Discharging clinician: Lauri Chamberlain - Patient Status Disposition: Home, Self-Care Condition: Good Functional capacity at discharge: independent ambulation Overall status at discharge: patient is progressing back to baseline - Discharge Instructions Instructions: Rivaroxaban (By mouth) Follow Up With: Verenice Castillo CNP [Primary Care Provider] - 02/11/17 3:00 pm Domenic Buckley MD [Partnered Physician] - Interval History: Mr. Macias is a 51 year old male With history of diabetes mellitus, hypertension, CKD stage 3 and PVD. Presents to the emergency department with history of sharp, severe, 10/10 right-sided lower chest pain associated with deep breath. Hence he is taking shallow breaths. He denies cough, hemoptysis, fever, chills, nausea, vomiting, abdominal pain, dysuria, hematuria, bowel problems. He was evaluated in the emergency department and his d-dimer was elevated at 1271. In view of his CKD stage 3, CTA chest could not be done and VQ scan is requested and yet to be done. He is started on heparin infusion in the ER and admitted to the hospitalist service for further w/u and management. He denies recent air travel, long car travel, recent hospitalization, surgical procedures, immobility, personal / family h/o VTE. Hospital course: Patient was hospitalized. He underwent VQ scan. VQ scan showed high probability of pulmonary embolism. Patient was started on heparin Hematology oncology consult for possible anticoagulation management in a case of pulmonary embolism. Echocardiogram was done which was negative for any pulmonary hypertension. Troponin 3 were negative. PLAN: Patient can go home after hematology oncology sees him We will write and handwritten prescription for recommended anticoagulation from hematology oncology at the time of discharge. Patient will follow-up with hematology oncology as outpatient. - Time Spent with Patient Total time spent providing and/or coordinating discharge services: - Constitutional Vitals: Temp Pulse Resp BP Pulse Ox 97.6 F 71 16 120/72 97 02/03/17 07:23 02/03/17 07:23 02/03/17 07:23 02/03/17 07:23 02/03/17 07:23 General appearance: Present: A&O X 3, pleasant, no acute distress, answers questions appropriately - Head Head exam: Present: atraumatic, normocephalic - Eye Eye exam: Present: PERRL, conjuntiva pink, sclera anicteric Pupils: Present: PERRL - Neck Neck exam general surgery: Present: supple, trachea midline. Absent: lymphadenopathy - Respiratory Respiratory exam: Present: CTAB. Absent: accessory muscle use, rales, rhonchi, wheezes - Cardiovascular Cardiovascular exam: Present: RRR, +S1, +S2. Absent: diastolic murmur, gallop, rubs, systolic murmur - GI/Abdominal GI/Abdominal exam: Present: normal bowel sounds, soft, no peritoneal signs. Absent: distended, tenderness - Extremities Exam Extremities exam: Present: warm, radial pulses palpable and symetrical. Absent : calf tenderness, cyanotic, pedal edema - Neurological Exam Neurological exam: Present: CN II-XII intact, oriented X3, no focal deficits. Absent: pronater drift, facial droop, speech deficit - Skin Skin exam: Present: dry, intact
[2017-02-03 15:28] VITALS: BP 124/73
== END 2017-02-03 17:02 | disposition home or self-care (01) | DRG 176 ==
LOC: EMEROO 23:33 → 3BNU 23:33
PROVIDERS: ADMIT Internal Medicine; ATTEND Nurse Practitioner Family